=== PATIENT | female | born 1970 | race Two or more races ===

== ENCOUNTER 2024-04-08 21:36 | Emergency (ER) | payer SELFPAY ==
[2024-04-08 21:46] VITALS: BP 131/80; PULSE 91; RESP 20; TEMP 37; O2SAT 97
--- NOTE | 2024-04-08 21:51 | XR_ITS ---
Examination: Lumbar spine 2 views Technique: AP lateral lumbar spine 2 views Exam date and time: April 08, 1999 2520 hours Indications: Patient fell today with injury to lower back, lower back pain. Findings: No lumbar fracture Mild diffuse lumbar disc narrowing Prominent lumbar spondylosis Impression: No acute lumbar fracture
--- NOTE | 2024-04-08 21:51 | XR_ITS ---
Examination: Sacrum and coccyx 3 views Technique: AP inclined AP lateral sacrum and coccyx 3 views Exam date and time: April 08, 2024 1029 hrs. Indications: Patient fell today with injury to the sacrum, sacral pain Findings: Adequate alignment sacrococcygeal segments No fracture Impression: No sacrococcygeal fracture
--- NOTE | 2024-04-08 21:51 | XR_ITS ---
EXAMINATION: Ankle, right 3 views . Technique: Ankle AP, oblique, lateral 3 views Date and time of exam: April 08, 2024 10:20 PM Indications: Patient fell today with into the ankle, ankle pain. Findings: Acute comminuted fractures distal fibular shaft without significant displacement No ankle dislocation Small plantar bony calcaneal spur Impression: Acute fractures distal fibular shaft
--- NOTE | 2024-04-08 21:51 | XR_ITS ---
Examination: Thoracic spine 2 views Technique one AP lateral thoracic spine 2 views Exam date and time: April 08, 2024 1026 hrs. Indications: Patient fell today with injury to the upper back, upper back pain. Findings: Satisfactory alignment thoracic vertebral bodies No thoracic fracture Moderate thoracic spondylosis Impression: No thoracic fracture
--- NOTE | 2024-04-08 21:52 | PD.EDRME ---
Rapid Medical Screening Exam RME Arrival date/time: 04/08/24 21:36 53 year old female present to ED for c/o of back and ankle s/p fall. I have greeted and performed a focused initial assessment of this patient. A comprehensive ED assessment and evaluation of the patient, analysis of all test results, and completion of the medical decision making process will be conducted by additional ED providers. Chief Complaint: Fall Time Seen by Provider: 04/08/24 21:44 Vital signs: Vital Signs Temperature 98.6 F 04/08/24 21:46 Pulse Rate 91 04/08/24 21:46 Respiratory Rate 20 04/08/24 21:46 Blood Pressure 131/80 H 04/08/24 21:46 Pulse Oximetry (%) 97 04/08/24 21:46 Oxygen Delivery Method Room Air 04/08/24 21:46
--- NOTE | 2024-04-08 23:12 | EDNOTE_ITS ---
ED Fall Injury RME/HPI General Chief Complaint: Fall Stated Complaint: FELL OFF CHAIR, RIGHT LEG AND TAILBONE PAIN Time Seen by Provider: 04/08/24 21:44 Arrival date/time: 04/08/24 21:36 53 female present to emergency room with c/o of fell off chair injury tailbone, back and leg pain today. No fevers No unexplained weight loss of night sweats No recent surgeries or recurrent bacterial infections No IVDU Patient is not immunocompromised Denies any new focal neurological deficits or new motor weakness Denies bowel or bladder incontinence or saddle anesthesia LOCATION: back, leg SEVERITY: Symptoms are described as being severe with limitations on activities of daily living QUALITY: Symptoms are described as being dull or achy CONTEXT: The patient is unable to identify any inciting events. DURATION/TIMING: The symptoms started approximately one day ago and have been constant this then. ASSOCIATED SYMPTOMS: The patient is unable to identify any other associated symptoms. MODIFYING FACTORS: The patient is unable to identify any alleviating or aggravating symptoms. PERTINENT ROS: no fevers, no IVDU, denies any ripping or tearing sensations, no associated abdominal pain, no focal neurological deficits and denies any saddle anesthesia, and no bowel or bladder incontinence REVIEW OF SYSTEMS: See History of Present Illness - with the exception of those mentioned in the history of present illness, all other systems reviewed and reported as negative GENERAL: In general the patient is awake, interactive, in an emergency department gurney. HEAD/EYES/EARS/NOSE/THROAT: normo-cephalic, atraumatic, mucus membranes are moist, anicteric, palpebral conjunctiva is pink, trachea is midline. CARDIOVASCULAR: regular rate and regular rhythm, no murmurs, heart sounds are not distant, strong pulses in all four extremities that are equal and symmetric bilateral upper and lower extremities, normal capillary refill. CHEST/PULMONARY: normal chest rise and fall, good air movement, clear to auscultation bilaterally, normal inspiratory to expiratory ratios without evidence of respiratory distress. NECK: No midline/Paraspinal tenderness, no step off ROM/Strenght intact No Kernig and bruzinski sign. No trauma ABDOMEN: soft, not tender, no masses appreciated BACK: mid, low back paraspinal tenderness, no midline tenderness, no step off normal range of motion without pain. NEUROLOGICAL: cranio-facial features are symmetric, moves all four extremities equally without obvious limitations or weakness. EXTREMITY: right lower lateral ankle tenderness with moderate swelling. no tenderness to palpation over the long bones or large joints of the bilateral upper extremities, no joint swelling, no joint erythema, no signs of trauma, no unilateral leg swelling and no peripheral edema. SKIN: warm, dry, well-perfused, no jaundice, no rash, no telangiectasias or petechia. PSYCH: calm, cooperative, no evidence of psychosis or agitation RME / HPI RME / HPI Narrative: 04/08/24 21:36 53 year old female present to ED for c/o of back and ankle s/p fall. I have greeted and performed a focused initial assessment of this patient. A comprehensive ED assessment and evaluation of the patient, analysis of all test results, and completion of the medical decision making process will be conducted by additional ED providers. Related Data Previous Rx's ?Medication ?Instructions ?Recorded tramadol 25 mg tablet 25 mg PO Q6H PRN pain #20 tabs 04/08/24 Allergies Allergy/AdvReac Type Severity Reaction Status Date / Time aspirin Allergy Rash Verified 04/08/24 21:37 Course Course Course Narrative: Workup: XR Ankle Findings: Fracture rx: ultra 25mg as need for pain Patient does not currently demonstrate complications of fracture such as compartment syndrome, arterial or nerve injury. Interventions: The fracture has been satisfactorily immobilized, and the patient has been given appropriate analgesia. Disposition: Discharge with strict return precautions and instructions to follow up with primary MD within 24-48 hours for further evaluation including referral to an orthopedist Quality Measures none Orders Category Date Time Status Crutches .NOW Care 04/08/24 23:12 Active Splint / Immobilizer STAT Care 04/08/24 23:12 Active XR ankle comp RT min 3V Stat Exams 04/08/24 21:51 Completed XR lumbar spine 2-3V Stat Exams 04/08/24 21:51 Completed XR sacrum coccyx min 2V Stat Exams 04/08/24 21:51 Completed XR thoracic spine 2V Stat Exams 04/08/24 21:51 Completed Vital Signs Vital signs: Vital Signs Temperature 98.6 F 04/08/24 21:46 Pulse Rate 91 04/08/24 21:46 Respiratory Rate 20 04/08/24 21:46 Blood Pressure 131/80 H 04/08/24 21:46 Pulse Oximetry (%) 97 04/08/24 21:46 Oxygen Delivery Method Room Air 04/08/24 21:46 Fall Patient data External records reviewed:: [facility] previous records Clinical information provided by:: patient Social determinants that could affect healthcare access:: none Patient has the following chronic illnesses:: none How is presenting disease/condition affected by chronic disease/condition?: no chronic disease Evaluation data The following diagnostics were reviewed and interpreted by me:: radiology exam(s) Lab and/or radiology exams considered but not ordered:: none Interpretation Summary: xray: Findings: Acute comminuted fractures distal fibular shaft without significant displacement No ankle dislocation Small plantar bony calcaneal spur Impression: Acute fractures distal fibular shaft lumbar, coccyx no acute findings Medications / Prescriptions Medications or Prescriptions considered but not ordered:: none Medication administrations:: none Consultations Consultation(s) initiated? (list below): No Diagnosis Fall Differential Diagnosis: compression fracture and other (ankle fracture, sprain , back strain ) Most likely diagnosis given after review of the tests above:: ankle fracture back strain Admission Indicated Admission indicated?: not indicated Admission Request Was there a request for admission?: No Disposition Plan Disposition Plan: Discharge Discharge Attestation Discharge Attestation: The patient and all family members were given an opportunity to ask questions and understood the discharge instructions. Discharge instructions specifically effects, indications for sooner follow up or return to the emergency department, and the expected course of current diagnosis. Patient condition: Stable Discharge Plan Plan Patient Disposition: HOME (Self Care) Prescriptions/Referrals Prescriptions/Med Rec: New tramadol 25 mg tablet 25 mg PO Q6H PRN (Reason: pain) Qty: 20 0RF Referrals: No Primary/Family,Physician [Primary Care Provider] - In 1 week Asa Zarate MD [Physician] - In 1 week Problem List Clinical Impression: Ankle fracture, Back sprain Patient/Caregiver Discharge Instructions Education Materials: ED Back Sprain/Strain, ED Fracture, Lower Extremity Print Language: Yoruba Stand Alone Forms: [employer]asia Award Info., Patient Portal Info Letter
[2024-04-08] MEDS: traMADol HCL 50 MG TABLET PO (23:38)
== END 2024-04-09 02:17 | disposition home or self-care (01) ==
PROVIDERS: Emergency Provider Emergency Medicine
DX: S82.891A Other fracture of right lower leg, initial encounter for closed fracture (principal); S39.012A Strain of muscle, fascia and tendon of lower back, initial encounter; W07.XXXA Fall from chair, initial encounter
CPT/HCPCS: 29515; 72070; 72100; 72220; 73610; 99283; A9270